=== PATIENT | male | born 1970 | race Caucasian/White ===

== ENCOUNTER 2019-04-19 03:48 | Inpatient (IN) | payer MEDICAID ==
[~2019-04-19] VITALS: Ht 172.7 cm; Wt 90.7 kg
[2019-04-19 03:56] VITALS: BP 154/100
--- NOTE | 2019-04-19 03:56 | NUR ---
PT TAKEN TO BED 7
[2019-04-19] MEDS ORDERED: MORPHINE SULFATE 4 MG/ML SYR IVP ONE ×3 (04:00→08:40)
[2019-04-19] MEDS ORDERED: NACL 0.9% 1,000 ML IV ONE (04:00)
[2019-04-19] MEDS ORDERED: ONDANSETRON 4 MG/2 ML VIAL IVP ONE (04:00)
--- NOTE | 2019-04-19 04:04 | NUR ---
Dr. Ayala examining patient.
--- NOTE | 2019-04-19 04:05 | NUR ---
48 YO M PRESENTS TO ED C/O 08/13 SHARP MIDDLE ABD PAIN THAT COMES AND GOES X 2 DAYS. PT ALSO C/O NVD. REPORTS EMESIS X 3 TODAY AND 1 EPISODE DIARRHEA YESTERDAY. PT DENIES PMH. ADMITS TO DRINKING "A LOT, ABOUT A 12 PACK A DAY". DENIES RECREATIONAL DRUG USE. -- PT APPEARS TO BE IN SEVERE PAIN. GUARDING ABD. GROANING, GRIMACING, USING INAPPROPRIATE LANGUAGE. -- SKIN PINK, WARM, DRY. -- ABD SOFT, FLAT, TENDER TO TOUCH. PMH-- DENIES RX-- DENIES
--- NOTE | 2019-04-19 04:15 | NUR ---
LABS DRAWN AT BEDSIDE BY RN.
[2019-04-19 04:33] LABS: BASOPHILS % (AUTO) 0.2 % (0.0-2.0); EOSINOPHILS # (AUTO) 0.2 K/uL (0-0.4); LYMPHOCYTES # (AUTO) 1.4 K/uL (2.0-11.5); MONOCYTES # (AUTO) 0.5 K/uL (0.8-1.0)
[2019-04-19 04:36] LABS: EOSINOPHILS % (AUTO) 2.7 % (0.0-4.0); HEMATOCRIT 49.6 % (36-52); HEMOGLOBIN 17.3 g/dL (12.0-18.0); LYMPHOCYTES % (AUTO) 19.9 % (20.5-51.1); MEAN CORPUSCULAR HEMOGLOBIN 32 pg (27-31); MEAN CORPUSCULAR HGB CONC 35 g/dL (33-37); MEAN CORPUSCULAR VOLUME 90.3 fL (80-94); MONOCYTES % (AUTO) 7.8 % (1.7-9.3); NEUTROPHILS # (AUTO) 4.9 K/uL (1.8-7.7); NEUTROPHILS % (AUTO) 69.4 % (42.2-75.2); PLATELET COUNT (AUTO) 246 K/uL (140-450); RED BLOOD CELL COUNT(AUTO) 5.49 MIL/uL (4.20-6.10); RED CELL DISTRIBUTION WIDTH 14.1 % (11.6-13.7)
[2019-04-19 04:44] LABS: ANION GAP 14.9 (8-16); CARBON DIOXIDE 25.7 mmol/L (21-32); CREATININE 1.1 mg/dL (0.7-1.3); POTASSIUM 3.6 mmol/L (3.5-5.1)
[2019-04-19] MEDS ORDERED: fentaNYL 0.05 MG/ML VIAL IVP ONE (05:25)
--- NOTE | 2019-04-19 05:45 | NUR ---
2 LMP O2 VIA NC PROVIDED FOR COMFORT TO KEEP SP02 >92%.
--- NOTE | 2019-04-19 05:57 | NUR ---
Ultrasound at bedside.
--- NOTE | 2019-04-19 07:04 | NUR ---
REPORT GIVEN TO JONATHON GERMAN.
--- NOTE | 2019-04-19 07:05 | NUR ---
Received report from Nikolas HOLT.
--- NOTE | 2019-04-19 07:19 | NUR ---
MECHELLE VALDIVIA AT BEDSIDE AT THIS TIME.
[2019-04-19] MEDS ORDERED: NACL 0.9% 2,000 ML IV SCH (07:39)
--- NOTE | 2019-04-19 07:52 | NUR ---
PT PENDING ADMIT, WAITING FOR APROVAL FROM INSURANCE.
[2019-04-19 08:23] LABS: GAMMA GLUTAMYL TRANSFERASE 726 U/L (7-51); MAGNESIUM 1.9 mg/dL (1.8-2.4)
[2019-04-19 08:24] LABS: PROTHROMBIN TIME 10.3 secs (10.8-13.4)
[2019-04-19] MEDS ORDERED: DOCUSATE SODIUM 100 MG GELCAP PO PRN (08:30)
[2019-04-19] MEDS ORDERED: ACETAMINOPHEN 325 MG TAB PO PRN (08:30)
[2019-04-19] MEDS ORDERED: ONDANSETRON 4 MG/2 ML VIAL IM/IVP PRN (08:30)
[2019-04-19] MEDS ORDERED: HYDROcodone/APAP 5/325 MG 1 TAB TAB PO PRN (08:30)
[2019-04-19] MEDS ORDERED: GLYCOPYRROLATE 0.2 MG/ML VIAL IV ONE (08:40)
[2019-04-19] MEDS ORDERED: KETOROLAC 30 MG/ML VIAL IVP ONE (08:40)
--- NOTE | 2019-04-19 08:40 | NUR ---
PT REPORTING 10/10 UPPER ABD PAIN. PT MOANING, AND GUARDING ABD. VSS. ER MD NOTIFIED.
[2019-04-19 08:56] LABS: BARBITURATE, URINE NEG. ng/ml (NEG <=200); BENZODIAZEPINE, URINE NEG. ng/mL (NEG <=200); CANNABINOID, URINE POS. ng/mL (NEG <=50); COCAINE, URINE NEG. ng/mL (NEG <=300); OPIATE, URINE POS. ng/mL (NEG <=2000); PHENCYCLIDINE SCREEN,URINE NEG. ng/mL (NEG <=25)
[2019-04-19 08:57] LABS: APPEARANCE,URINE CLEAR (CLEAR); BILIRUBIN,URINE NEGATIVE (NEGATIVE); BLOOD, URINE NEGATIVE (NEGATIVE); COLOR,URINE YELLOW (YELLOW); LEUKOCYTE ESTERASE ,URINE NEGATIVE (NEGATIVE); NITRITE, URINE NEGATIVE (NEGATIVE); PH,URINE >=9.0 (5.0-9.0); UGLUCOSE NEGATIVE (NEGATIVE)
[2019-04-19] MEDS ORDERED: LORazepam 1 MG TAB PO PRN (09:05)
--- NOTE | 2019-04-19 09:15 | NUR ---
Patient will be admitted to care of [facility]. Admited to MED/SURG VIA WHEELCHAIR W/ VSS. Belongings list completed. Report to NANDA HOLT.
--- NOTE | 2019-04-19 09:15 | NUR ---
PATIENT ARRIVED UNIT VIA WHEELCHAIR ACCOMPANIED BY X RAY OPERATOR. PATIENT IS AAOX4. RESPIRATION EVEN AND UNLABORED ON RA. PATIENT STATED THAT HIS PAIN IS WITHIN TOLERATED LIMIT AFTER HE RECEIVED PAIN MEDS FROM ER. IV ON LAC 18G, CLEAN AND INTACT, NOT INFUSING AT THIS TIME. SKIN CLEAN AND DRY. PATIENT IS ABLE TO AMBULATE WITH STANDBY ASSIST. CONTINENT. ASSISTED PATIENT TO LAY DOWN ON BED COMFORTABLY. INTRODUCED SELF AND ORIENTED PATIENT TO ROOM, INSTRUCTED PATIENT ON HOW TO USE THE CALL LIGHT, BED REMOTE, TV, BATHROOM AND LIGHTS. PATIENT VERBALIZED OK. DISCUSSED PLAN OF CARE WITH PATIENT AND PATIENT VERBALIZED UNDERSTANDING. BED IN LOW POSITION AND CALL LIGHT WITHIN REACH. INSTRUCTED PATIENT TO USE THE CALL LIGHT FOR ANY ASSISTANCE, AND PATIENT WAS AWARE.
--- NOTE | 2019-04-19 09:22 | NUR ---
PATIENT REQUESTED FOR SOME WATER AND STATED THAT HE IS THIRSTY. INFORMED PATIENT THAT DUE TO HIS CONDITION, DR WANTS HIM TO BE NPO. PATIENT VERBALIZED UNDERSTANDING. PROVIDED ICE CHIPS TO MOISTURE MOUTH.
[2019-04-19 09:30] VITALS: BP 129/81
--- NOTE | 2019-04-19 09:45 | NUR ---
CALLED PATIENT'S DHIRAJ PER PATIENT'S REQUEST, INFORMED DHIRAJ THAT PATIENT IS PLACED IN ROOM 105 BED ASugar HEARN WAS AWARE.
[2019-04-19] MEDS: DEXT 5% / NACL 0.45% 1,000 ML IV SCH ×2 (10:13→22:04)
--- NOTE | 2019-04-19 10:13 | NUR ---
STARTED IVF PER MD ORDER. COLLECTED MRSA NARES. APPLIED SEQUENTIAL COMPRESSION SOCKS ON PATIENT'S LEGS. EDUCATION PROVIDED AND PATIENT VERBALIZED UNDERSTANDING.
[2019-04-19 11:25] LABS: MAGNESIUM 1.8 mg/dL (1.8-2.4); PHOSPHORUS 3.2 mg/dL (2.5-4.9); THYROID STIMULATING HORMONE 0.34 uIU/mL (0.34-3.74)
--- NOTE | 2019-04-19 11:50 | NUR ---
PATIENT IS TALKING TO DHIRAJ AND VISITOR AT BEDSIDE. NO SIGNS OF DISTRESS NOTED. SAFETY MEASURES IN PLACE.
[2019-04-19] MEDS ORDERED: LACTULOSE 20 GM/30 ML UDC PO SCH ×2 (13:00→21:00)
[2019-04-19] MEDS: LORazepam 1 MG TAB PO SCH ×2 (13:12→20:14)
--- NOTE | 2019-04-19 13:12 | NUR ---
ADMINISTERED MEDS PER MD ORDER, PATIENT TOLERATED WELL AND STATED THAT " MY PAIN IS STILL OK. NOT BAS THIS MORNING." MEDICATION EDUCATION PROVIDED AND PATIENT VERBALIZED UNDERSTANDING. PATIENT IS TALKING ON THE PHONE. SAFETY MEASURES IN PLACE. BED IN LOW POSITION AND CALL LIGHT WITHIN REACH. INSTRUCTED PATIENT TO USE THE CALL LIGHT FOR ANY ASSISTANCE AND PATIENT WAS AWARE.
--- NOTE | 2019-04-19 15:20 | NUR ---
PATIENT IS LYING FLAT ON BED AND DOING HIDA SCAN. PATIENT DENIES PAIN AND ANY DISCOMFORT AT THIS TIME. NO SIGNS OF DISTRESS NOTED. SEQUENTIAL COMPRESSION SOCKS IN PLACE. SAFETY MEASURES IN PLACE. BED IN LOW POSITION AND CALL LIGHT WITHIN REACH. INSTRUCTED PATIENT TO USE THE CALL LIGHT FOR ANY ASSISTANCE AND PATIENT WAS AWARE.
[2019-04-19 16:00] VITALS: BP 125/73
[2019-04-19] MEDS: MORPHINE SULFATE 2 MG/ML SYR IVP PRN (17:51)
--- NOTE | 2019-04-19 17:51 | NUR ---
PATIENT COMPLAINED 8/10 PAIN ON HIS ABDOMINAL AREA, MEDICATED WITH PRN PAIN MED, PATIENT TOLERATED WELL. PATIENT IS RESTING ON BED. SEQUENTIAL COMPRESSION SOCKS IN PLACE. SAFETY MEASURES IN PLACE. BED IN LOW POSITION AND CALL LIGHT WITHIN REACH. INSTRUCTED PATIENT TO USE THE CALL LIGHT FOR ANY ASSISTANCE AND PATIENT WAS AWARE.
--- NOTE | 2019-04-19 19:07 | NUR ---
ENDORSED PATIENT AT BEDSIDE TO LANE ATTENDANT NURSE FOR CONTINUITY OF CARE. PATIENT IS RESTING ON BED. DENIES PAIN AT THIS TIME. NO SIGNS OF DISTRESS NOTED. SAFETY MEASURES IN PLACE. PATIENT IS IN STABLE CONDITION.
--- NOTE | 2019-04-19 19:10 | NUR ---
RECEIVED PT ON BED SLEEPING, AROUSABLE TO NAME, DENIES ANY PAIN, IVF INFUSING WELL, MAINTAINED ON NPO EXCEPT MEDS, PLAN OF CARE DISCUSSED, SAFETY MEASURES IN PLACE, CALL LIGHT WITHIN REACH.
--- NOTE | 2019-04-19 21:25 | NUR ---
CALLED RADIOLOGY TO FOLLOW UP HIDA SCAN RESULT, SPOKE TO OLAMIDE, STATED SHE WILL FOLLOW UP ON-LINE RADIOLOGY.
--- NOTE | 2019-04-19 21:53 | NUR ---
HIDA SCAN RESULT RECEIVED FROM ON-LINE RADIOLOGY VIA FAX, DR SWANN MADE AWARE OF RESULT.
--- NOTE | 2019-04-19 23:50 | NUR ---
PT SLEEPING, EASILY AROUSABLE TO TOUCH, VITAL SIGNS STABLE, DENIES ANY PAIN, MAINTAINED ON NPO EXCEPT MEDS, IVF INFUSING WELL, CONTINUE TO MONITOR CLOSELY.
[2019-04-20] VITALS: BP 116/72
[2019-04-20] MEDS: LORazepam 1 MG TAB PO SCH ×3 (04:19→20:33)
[2019-04-20] MEDS: MORPHINE SULFATE 2 MG/ML SYR IVP PRN (04:23)
--- NOTE | 2019-04-20 04:30 | NUR ---
PT AMBULATED TO BR WITH STEADY GAIT, VOIDED FREELY, PT MEDICATED FOR ABDOMINAL PAIN WITH MORPHINE IVP, DUE ATIVAN PO ADMINISTERED, MAINTAINED ON NPO EXCEPT MEDS, IVF INFUSING WELL, MONITORED CLOSELY.
--- NOTE | 2019-04-20 06:00 | NUR ---
PT SLEEPING, VISIBLE CHEST RISE AND FALL, IVF INFUSING WELL, MONITORED CLOSELY.
[2019-04-20 06:52] LABS: BASOPHILS % (AUTO) 0.3 % (0.0-2.0); EOSINOPHILS # (AUTO) 0.3 K/uL (0-0.4); EOSINOPHILS % (AUTO) 4.5 % (0.0-4.0); HEMATOCRIT 44.8 % (36-52); LYMPHOCYTES # (AUTO) 1.5 K/uL (2.0-11.5); LYMPHOCYTES % (AUTO) 26.3 % (20.5-51.1); MEAN CORPUSCULAR HEMOGLOBIN 31 pg (27-31); MEAN CORPUSCULAR HGB CONC 33 g/dL (33-37); MEAN CORPUSCULAR VOLUME 92.8 fL (80-94); MONOCYTES # (AUTO) 0.4 K/uL (0.8-1.0); MONOCYTES % (AUTO) 6.8 % (1.7-9.3); NEUTROPHILS # (AUTO) 3.6 K/uL (1.8-7.7); NEUTROPHILS % (AUTO) 62.1 % (42.2-75.2); PLATELET COUNT (AUTO) 187 K/uL (140-450); RED BLOOD CELL COUNT(AUTO) 4.82 MIL/uL (4.20-6.10); RED CELL DISTRIBUTION WIDTH 13.9 % (11.6-13.7); WHITE BLOOD COUNT (AUTO) 5.8 K/uL (4.8-10.8)
[2019-04-20 07:13] LABS: MAGNESIUM 1.9 mg/dL (1.8-2.4); PHOSPHORUS 2.8 mg/dL (2.5-4.9)
--- NOTE | 2019-04-20 07:20 | NUR ---
PT SLEEPING, NO SIGNS OF DISTRESS, REPORT GIVEN TO JONATHON TSAI FOR CONTINUITY OF CARE.
[2019-04-20 07:21] LABS: ALBUMIN 3.2 g/dL (3.4-5.0); ANION GAP 11.1 (8-16); CARBON DIOXIDE 27.1 mmol/L (21-32); POTASSIUM 4.2 mmol/L (3.5-5.1); TOTAL BILIRUBIN 1.2 mg/dL (0.0-1.0)
--- NOTE | 2019-04-20 07:21 | NUR ---
RECEIVED REPORT FROM STRETCHER HELPER NURSE WILLIAM FOR CONTINUITY OF CARE. PT IN STABLE CONDITION. RESPIRATIONS EVEN AND UNLABORED. IV INTACT AND PATENT. SAFETY MEASURES IN PLACE. BED IN LOW POSITION. CALL LIGHT AT BEDSIDE, USE INSTRUCTIONS GIVEN. WILL CONTINUE TO MONITOR.
[2019-04-20 08:00] VITALS: BP 132/87
--- NOTE | 2019-04-20 08:45 | NUR ---
PATIENT HAS BEEN SCREENED AND CATEGORIZED LOW NUTRITION RISK. PATIENT WILL BE SEEN WITHIN 7 DAYS OF ADMISSION. 04/25/[address]
[2019-04-20] MEDS ORDERED: PIPER/TAZO 3.375GM/D5W PREMIX 50 ML IV SCH (09:35)
[2019-04-20] MEDS ORDERED: LACTOBACILLUS RHAMNOSUS GG 1 EACH CAP PO SCH (09:36)
[2019-04-20] MEDS: MULTIVITAMIN 1 TAB PO SCH (09:41)
[2019-04-20] MEDS: THIAMINE 100 MG TAB PO SCH (09:41)
[2019-04-20] MEDS: FOLIC ACID 1 MG TAB PO SCH (09:41)
--- NOTE | 2019-04-20 09:45 | NUR ---
GAVE ORDERED DUE MEDICATIONS. PT TOLERATED WELL. WILL CONTINUE TO MONITOR. CALL LIGHT AT BEDSIDE. BED IN LOW POSITION. WILL CONTINUE TO MONITOR.
--- NOTE | 2019-04-20 11:26 | NUR ---
PT LYING IN BED SLEEP AT THIS TIME. RESPIRATIONS EVEN AND UNLABORED. BED IN LOW POSITION. CALL LIGHT AT BEDSIDE. WILL CONTINUE TO MONITOR.
[2019-04-20] MEDS: DEXT 5% / NACL 0.45% 1,000 ML IV SCH ×2 (11:44→22:25)
--- NOTE | 2019-04-20 13:26 | NUR ---
PT SLEEPING AT THIS TIME. RESPIRATIONS EVEN AND UNLABORED. PT EASILY AROUSED BY VOICE. PT IN STABLE CONDITION. CALL LIGHT AT BEDSIDE. BED IN LOW POSITION.
--- NOTE | 2019-04-20 15:00 | NUR ---
PT LAYING IN BED AWAKE IN STABLE CONDITION. RESPIRATIONS EVEN AND UNLABORED. BED IN LOW POSITION. CALL LIGHT AT BEDSIDE. WILL CONTINUE TO MONITOR.
[2019-04-20 16:00] VITALS: BP 125/77
--- NOTE | 2019-04-20 17:35 | NUR ---
PICKED UP FOOD TRAY (FULL LIQUID DIET) FOR PT. PT WILL BE NPO AFTER MIDNIGHT DUE TO SURGERY 04/21/2019.
--- NOTE | 2019-04-20 18:30 | NUR ---
GAVE ORDERED DUE MEDICATIONS. PT TOLERATED WELL. WILL CONTINUE TO MONITOR. BED IN LOW POSITION. CALL LIGHT AT BEDSIDE.
[2019-04-20] MEDS: PIPER/TAZO 3.375GM/D5W PREMIX 50 ML IV SCH (18:43)
--- NOTE | 2019-04-20 19:15 | NUR ---
GAVE REPORT TO HOUSEHOLD MANAGER NURSE KEHINDE FOR CONTINUITY OF CARE. PT IN STABLE CONDITION.
--- NOTE | 2019-04-20 19:16 | NUR ---
Received endorsement from AM shift RN; patient A/Ox4, able to make needs known, ambulatory. Patient resting; introduced self, updated board. No SOB or distress noted, on room air. IV site on left antecubital, 18 gauge, intact, running IVF at 80mL/hr. Skin intact. Bed in the lowest position, call light within reach. Initial assessment done. Will continue to monitor.
--- NOTE | 2019-04-20 20:40 | NUR ---
Due meds given, tolerated well.
--- NOTE | 2019-04-20 22:30 | NUR ---
Rounds done; no SOB or distress noted. Made patient aware he cannot eat or drink anything after midnight in preparation for surgery tomorrow 04/21/2019 at 1300.
[2019-04-21] VITALS: BP 119/80
--- NOTE | 2019-04-21 00:05 | NUR ---
Vitals taken, no SOB or distress noted.
[2019-04-21] MEDS: PIPER/TAZO 3.375GM/D5W PREMIX 50 ML IV SCH ×5 (00:58→23:23)
--- NOTE | 2019-04-21 02:30 | NUR ---
Frequent checks made; no distress noted.
[2019-04-21] MEDS: LORazepam 1 MG TAB PO SCH ×3 (04:50→20:15)
--- NOTE | 2019-04-21 05:00 | NUR ---
Due meds given, tolerated well.
[2019-04-21 06:12] LABS: HEPATITIS A ANTIBODY IGM Negative (Negative); HEPATITIS B CORE AB TOTAL Negative (Negative); HEPATITIS B SURFACE ANTIBODY Non Reactive (.); HEPATITIS B SURFACE ANTIGEN Negative (Negative)
[2019-04-21 06:39] LABS: BASOPHILS % (AUTO) 0.5 % (0.0-2.0); EOSINOPHILS # (AUTO) 0.4 K/uL (0-0.4); EOSINOPHILS % (AUTO) 5.3 % (0.0-4.0); HEMATOCRIT 45.4 % (36-52); HEMOGLOBIN 15.4 g/dL (12.0-18.0); LYMPHOCYTES # (AUTO) 2.2 K/uL (2.0-11.5); MEAN CORPUSCULAR HEMOGLOBIN 31 pg (27-31); MEAN CORPUSCULAR HGB CONC 34 g/dL (33-37); MEAN CORPUSCULAR VOLUME 92.3 fL (80-94); MONOCYTES # (AUTO) 0.7 K/uL (0.8-1.0); MONOCYTES % (AUTO) 8.6 % (1.7-9.3); NEUTROPHILS # (AUTO) 4.5 K/uL (1.8-7.7); NEUTROPHILS % (AUTO) 57.6 % (42.2-75.2); PLATELET COUNT (AUTO) 226 K/uL (140-450); RED BLOOD CELL COUNT(AUTO) 4.92 MIL/uL (4.20-6.10); RED CELL DISTRIBUTION WIDTH 13.7 % (11.6-13.7); WHITE BLOOD COUNT (AUTO) 7.8 K/uL (4.8-10.8)
--- NOTE | 2019-04-21 07:18 | NUR ---
Endorsed patient to AM shift RN for continuity of care; patient in stable condition.
--- NOTE | 2019-04-21 07:20 | NUR ---
RECEIVED BEDSIDE REPORT FROM WAITER/WAITRESS FORMAL NURSE FOR CONTINUITY OF CARE. PATIENT IS SLEEPING ON BED AT THIS TIME. EVEN AND UNLABORED CHEST RISES NOTED. AROUSABLE TO VOICE. DENIES PAIN AND SOB. NO SIGNS OF DISTRESS NOTED. IV ON LAC 18G, CLEAN AND DRY, INFUSING PER MD ORDER. SKIN INTACT AND CLEAN. PATIENT IS ABLE TO AMBULATE AND CONTINENT. DISCUSSED PLAN OF CARE WITH PATIENT AND PATIENT VERBALIZED OK. SAFETY MEASURES IN PLACE. BED IN LOW POSITION AND CALL LIGHT WITHIN REACH.
[2019-04-21 07:22] LABS: ALBUMIN 3.1 g/dL (3.4-5.0); ANION GAP 11.5 (8-16); CARBON DIOXIDE 27.7 mmol/L (21-32); CREATININE 1.1 mg/dL (0.7-1.3); MAGNESIUM 1.9 mg/dL (1.8-2.4); PHOSPHORUS 3.8 mg/dL (2.5-4.9); POTASSIUM 4.2 mmol/L (3.5-5.1); TOTAL BILIRUBIN 0.8 mg/dL (0.0-1.0)
[2019-04-21 08:00] VITALS: BP 106/68
[2019-04-21] MEDS: THIAMINE 100 MG TAB PO SCH (08:55)
[2019-04-21] MEDS: MULTIVITAMIN 1 TAB PO SCH (08:55)
[2019-04-21] MEDS: LACTOBACILLUS RHAMNOSUS GG 1 EACH CAP PO SCH (08:55)
[2019-04-21] MEDS: FOLIC ACID 1 MG TAB PO SCH (08:56)
--- NOTE | 2019-04-21 09:45 | NUR ---
PATIENT IS TALKING TO DHIRAJ AND VISITOR AT BEDSIDE. NO SIGNS OF DISTRESS NOTED. SAFETY MEASURES IN PLACE.
--- NOTE | 2019-04-21 11:35 | NUR ---
PATIENT IS RESTING ON BED. DENIES PAIN AND SOB AT THIS TIME. NO SIGNS OF DISTRESS. SAFETY MEASURES IN PLACE. BED IN LOW POSITION AND CALL LIGHT WITHIN REACH. INSTRUCTED PATIENT TO USE THE CALL LIGHT FOR ANY ASSISTANCE AND PATIENT WAS AWARE.
[2019-04-21] MEDS: DEXT 5% / NACL 0.45% 1,000 ML IV SCH (13:21)
--- NOTE | 2019-04-21 13:23 | NUR ---
ADMINISTERED MED PER MD ORDER, PATIENT TOLERATED WELL. PATIENT IS RESTING ON BED. DENIES PAIN AND SOB AT THIS TIME. NO SIGNS OF DISTRESS. SAFETY MEASURES IN PLACE. BED IN LOW POSITION AND CALL LIGHT WITHIN REACH. INSTRUCTED PATIENT TO USE THE CALL LIGHT FOR ANY ASSISTANCE AND PATIENT WAS AWARE.
--- NOTE | 2019-04-21 15:15 | NUR ---
PATIENT IS OFF UNIT TO THE OR ACCOMPANIED BY APPAREL FASHION DESIGNERJONATHON NEVAREZ. PATIENT IS IN STABLE CONDITION.
[2019-04-21] MEDS ORDERED: PROPOFOL 200 MG/20 ML VIAL IV ONE (16:17)
[2019-04-21] MEDS ORDERED: LABETALOL 100 MG/20 ML VIAL ONE (16:17)
[2019-04-21] MEDS ORDERED: SUCCINYLCHOLINE CHLORIDE 200 MG/10 ML VIAL IVP ONE (16:17)
[2019-04-21] MEDS ORDERED: ROCURONIUM 50 MG/5 ML VIAL IV ONE (16:17)
[2019-04-21] MEDS ORDERED: DESFLURANE 240 ML BTL INH ONE (16:17)
[2019-04-21] MEDS ORDERED: DEXAMETHASONE 4 MG/ML VIAL ONE (16:17)
[2019-04-21] MEDS ORDERED: LIDOCAINE 2% 100 MG/5 ML SYR IVP ONE (16:17)
[2019-04-21] MEDS ORDERED: MIDAZOLAM 2 MG/2 ML VIAL ONE (16:30)
[2019-04-21] MEDS ORDERED: fentaNYL 0.05 MG/ML VIAL ONE (16:30)
[2019-04-21] MEDS ORDERED: BUPIVACAINE-MPF/EPI 0.25% 30 ML VIAL INJ ONE (16:36)
[2019-04-21] MEDS ORDERED: ONDANSETRON 4 MG/2 ML VIAL IVP PRN (17:00)
[2019-04-21] MEDS: HYDROmorphone 1 MG/ML AMP IVP PRN ×4 (18:30→19:00)
--- NOTE | 2019-04-21 18:45 | NUR ---
RECEIVED A CALL FROM PATIENT'S DHIRAJ THAT SHE WANTS TO KNOW HOW IS PATIENT DOING, INFORMED DHIRAJ THAT PATIENT IS IN RECOVERY AND NOT YET COME BACK TO THE UNIT. DHIRAJ SAID SHE WILL NOT BE COMING IN TO VISIT [facility]ENCHO. SHE REQUESTS TO BE CALL ONCE PATIENT IS BACK ON THE UNIT OR HAVE PATIENT TO CALL HER ONCE HE IS AWAKE AND ALERT. WILL NOTIFY THE ON COMING SHIFT NURSE ON REGARD OF DHIRAJ'S REQUEST.
[2019-04-21] MEDS ORDERED: HYDROmorphone PFS 2 MG/ML SYR ONE (18:48)
--- NOTE | 2019-04-21 19:09 | NUR ---
REPORT GIVEN TO FINANCIAL ACCOUNTING MANAGER NURSE FOR CONTINUITY OF CARE. PATIENT IS NOT YET BACK ON UNIT. INFORMED FINANCIAL ACCOUNTING MANAGER NURSE TO NOTIFY PATIENT'S ONCE PATIENT IS BACK ON UNIT OR HAVE PATIENT TO CALL IF HE IS ALERT AND AWAKE.
--- NOTE | 2019-04-21 19:10 | NUR ---
Received endorsement from AM shift RN; patient not in unit. Patient is currently in OR for surgery.
--- NOTE | 2019-04-21 19:20 | NUR ---
Patient arrived in unit via bed, accompanied by STENCIL CUTTER; patient A/Ox4, able to make needs known, lethargic. Patient resting; introduced self, updated board. No SOB or distress noted, on room air. IV site on left antecubital, 18 gauge, intact, running IVF at 80mL/hr. Skin intact, but noted with 4 incision sites on abdomen area, no bandages. Bed in the lowest position, call light within reach. Initial assessment done. Will continue to monitor.
[2019-04-21] MEDS ORDERED: ALBUTEROL SULFATE/IPRATROPIU 3 ML SOL IH PRN (19:25)
--- NOTE | 2019-04-21 19:30 | NUR ---
Vitals taken; patient noted with decreased O2Sat 87-89%. Dr. Bautista made aware. Orders made and carried out.
--- NOTE | 2019-04-21 21:10 | NUR ---
Due meds given, tolerated well.
--- NOTE | 2019-04-21 23:00 | NUR ---
Checks made; patient stated 6/10 abdominal pain. Will medicate as ordered and per pain scale.
[2019-04-21] MEDS: HYDROcodone/APAP 5/325 MG 1 TAB TAB PO PRN (23:27)
[2019-04-22] VITALS: BP 115/73
--- NOTE | 2019-04-22 00:20 | NUR ---
Vitals taken, no distress noted.
--- NOTE | 2019-04-22 00:50 | NUR ---
Wound assessment completed. Addendum: 04/22/19 at 0300 by Dominic Patterson RN Measurements done.
[2019-04-22] MEDS: DEXT 5% / NACL 0.45% 1,000 ML IV SCH (00:58)
--- NOTE | 2019-04-22 03:00 | NUR ---
Rounds done; patient asleep, visible chest rise and fall noted.
[2019-04-22] MEDS: PIPER/TAZO 3.375GM/D5W PREMIX 50 ML IV SCH ×2 (05:01→11:06)
[2019-04-22] MEDS: LORazepam 1 MG TAB PO SCH ×2 (05:01→13:03)
[2019-04-22] MEDS: MORPHINE SULFATE 2 MG/ML SYR IVP PRN ×2 (05:02→08:10)
[2019-04-22] MEDS: NACL 0.9% 500 ML IV SCH ×2 (05:49→13:50)
--- NOTE | 2019-04-22 05:50 | NUR ---
Checks made; patient asleep, visible chest rise and fall noted.
[2019-04-22] MEDS ORDERED: HYDR-5122 PO (06:16)
[2019-04-22 06:58] LABS: BASOPHILS % (AUTO) 0.2 % (0.0-2.0); EOSINOPHILS # (AUTO) 0.1 K/uL (0-0.4); EOSINOPHILS % (AUTO) 0.6 % (0.0-4.0); HEMOGLOBIN 15.5 g/dL (12.0-18.0); LYMPHOCYTES # (AUTO) 1.3 K/uL (2.0-11.5); LYMPHOCYTES % (AUTO) 12.8 % (20.5-51.1); MEAN CORPUSCULAR HEMOGLOBIN 31 pg (27-31); MEAN CORPUSCULAR HGB CONC 34 g/dL (33-37); MEAN CORPUSCULAR VOLUME 93.3 fL (80-94); MONOCYTES # (AUTO) 0.6 K/uL (0.8-1.0); NEUTROPHILS % (AUTO) 80.4 % (42.2-75.2); PLATELET COUNT (AUTO) 244 K/uL (140-450); RED BLOOD CELL COUNT(AUTO) 4.93 MIL/uL (4.20-6.10); RED CELL DISTRIBUTION WIDTH 13.5 % (11.6-13.7); WHITE BLOOD COUNT (AUTO) 9.9 K/uL (4.8-10.8)
[2019-04-22 07:18] LABS: ALBUMIN 3.5 g/dL (3.4-5.0); ANION GAP 11.8 (8-16); CARBON DIOXIDE 27.9 mmol/L (21-32); CREATININE 1.2 mg/dL (0.7-1.3); MAGNESIUM 2.1 mg/dL (1.8-2.4); PHOSPHORUS 4.5 mg/dL (2.5-4.9); POTASSIUM 4.7 mmol/L (3.5-5.1); TOTAL BILIRUBIN 0.9 mg/dL (0.0-1.0)
--- NOTE | 2019-04-22 07:18 | NUR ---
Endorsed patient to AM shift RN for continuity of care; patient in stable condition.
--- NOTE | 2019-04-22 07:19 | NUR ---
RECEIVED BED SIDE REPORT FROM PERPETUAL INVENTORY CLERK RN. PT SLEEPING COMFORTABLY IN NO RESPIRATORY DISTRESS ON RA. NS RUNNING AT 60CC/HR. PT IS S/P LAP CHOLY WHICH WAS DONE YESTERDAY. WILL CONTINUE TO MONITOR
[2019-04-22 08:00] VITALS: BP 144/94
[2019-04-22] MEDS: FOLIC ACID 1 MG TAB PO SCH (08:08)
[2019-04-22] MEDS: THIAMINE 100 MG TAB PO SCH (08:08)
[2019-04-22] MEDS: LACTOBACILLUS RHAMNOSUS GG 1 EACH CAP PO SCH (08:09)
[2019-04-22] MEDS: MULTIVITAMIN 1 TAB PO SCH (08:09)
[2019-04-22 08:18] LABS: HEPATITIS A ANTIBODY IGM Negative (Negative)
[2019-04-22] MEDS: HYDROcodone/APAP 5/325 MG 1 TAB TAB PO PRN (11:39)
--- NOTE | 2019-04-22 11:55 | NUR ---
NOTIFIED ABOUT PT'S INCISIONAL PAIN NOT BEING REDUCED WHEN GIVING MORPHINE. EVAULATED PT AND TOLD ME TO GIVE NORCO AND TO CONTINUE TO MONITOR
--- NOTE | 2019-04-22 13:36 | NUR ---
OSMIN NOONAN EARLIER. PT STILL IN A SIGNIFICANT AMOUNT OF PAIN AFTER GIVING NORCO. MADE AWARE ABOUT MORPHINE NOT WORKING, ORDERED ME TO GIVE NORCO. PT ATE 10% OF FOOD AND SAID FELT NAUSEOUS BUT NO VOMITING. GAVE ATIVAN PER MD ORDER, NO ALCOHOL WITHDRAWALS NOTED. PT ABLE TO WALK TO BATHROOM WITH STEADY GAIT. GAVE FOLDED BLANKET FOR SPLINTING. WILL CONTINUE TO MONITOR.
--- NOTE | 2019-04-22 14:49 | NUR ---
PT WHEELED OUT OF UNIT. WITH PT. PERSONAL BELONGINGS TAKEN WITH PT ALONG WITH DC PACKET. IV TAKEN OFF, NO BLEEDING NOTED.
== END 2019-04-22 14:49 | disposition home or self-care (01) | DRG 263 ==
LOC: MED 03:48 → MTU 08:34
PROVIDERS: ADMIT General Practice; ATTEND General Practice
PROC: 0FT44ZZ Resection of Gallbladder, Percutaneous Endoscopic Approach (ICD-10-PCS; principal; 2019-04-21 16:10)
DX: K80.00 Calculus of gallbladder with acute cholecystitis without obstruction (principal); E44.0 Moderate protein-calorie malnutrition; E72.20 Disorder of urea cycle metabolism, unspecified; K70.9 Alcoholic liver disease, unspecified; F10.239 Alcohol dependence with withdrawal, unspecified; Y90.0 Blood alcohol level of less than 20 mg/100 ml; Z80.41 Family history of malignant neoplasm of ovary; I10 Essential (primary) hypertension; F12.10 Cannabis abuse, uncomplicated; Z71.51 Drug abuse counseling and surveillance of drug abuser; D13.5 Benign neoplasm of extrahepatic bile ducts; Z68.30 Body mass index [BMI] 30.0-30.9, adult
CPT/HCPCS: 36415; 71045; 76705; 78445; 80053; 80305; 81003; 82140; 82150; 82977; 83036; 83605; 83690; 83735; 83880; 84100; 84436; 84443; 84484; 85025; 85610; 86704; 86706; 86708; 86709; 86803; 86886; 86900; 86901; 87081; 87340; 93005; 96361; 96374; 96375; 96376; 99285; G0482; J0330; J1100; J1170; J1885; J2001; J2250; J2270; J2405; J2543; J2704; J3010; J3490; J7030; Q0092

== ENCOUNTER 2019-05-07 13:17 | Emergency (ER) | payer MEDICAID ==
[~2019-05-07] VITALS: Ht 172.7 cm; Wt 85.3 kg
[~2019-05-07 13:17] MED LIST: HYDR-5122 PO
[2019-05-07 13:21] VITALS: BP 126/85
--- NOTE | 2019-05-07 13:28 | NUR ---
PT AMBULATED TO ER BED 04
--- NOTE | 2019-05-07 13:40 | NUR ---
C/O R 3RD FINGER INFLAMMATION X3 WEEKS. PT REPORTS HISTORY OF GOUT. PT DENIES INJURY TO FINGER. HX: GOUT RX: NAME UNKNOWN
[2019-05-07] MEDS ORDERED: KETOROLAC 60 MG/2 ML VIAL IM ONE (14:10)
[2019-05-07] MEDS ORDERED: DEXAMETHASONE 10 MG/ML VIAL IM ONE (14:10)
[2019-05-07 15:52] VITALS: BP 132/87
== END 2019-05-07 15:50 | disposition home or self-care (01) ==
LOC: MED 13:17
DX: M10.041 Idiopathic gout, right hand (principal); Z79.899 Other long term (current) drug therapy
CPT/HCPCS: 73140; 96372; 99283; J1100; J1885

== ENCOUNTER 2019-07-08 20:11 | Emergency (ER) | payer MEDICAID ==
[~2019-07-08] VITALS: Ht 172.7 cm; Wt 79.4 kg
[2019-07-08 20:15] VITALS: BP 135/82
[2019-07-08] MEDS ORDERED: IBUPROFEN 600 MG TAB PO ONE (20:45)
[2019-07-08 21:59] VITALS: BP 132/88
== END 2019-07-08 21:59 | disposition home or self-care (01) ==
LOC: MED 20:11
DX: S52.572A Other intraarticular fracture of lower end of left radius, initial encounter for closed fracture (principal); F10.129 Alcohol abuse with intoxication, unspecified; Z90.49 Acquired absence of other specified parts of digestive tract; Z79.891 Long term (current) use of opiate analgesic; W18.39XA Other fall on same level, initial encounter; Y92.89 Other specified places as the place of occurrence of the external cause; Y93.89 Activity, other specified; Y99.8 Other external cause status
CPT/HCPCS: 29125; 73110; 99283; Q0092

== ENCOUNTER 2019-12-19 21:43 | Emergency (ER) | payer MEDICAID ==
[~2019-12-19] VITALS: Ht 172.7 cm; Wt 81.6 kg
[2019-12-19 21:50] VITALS: BP 145/94
--- NOTE | 2019-12-19 21:53 | NUR ---
TO LOBBY A/W BED AMBULATORY
--- NOTE | 2019-12-19 22:43 | NUR ---
PT AMBULATED TO BED 02.
--- NOTE | 2019-12-19 22:50 | NUR ---
48 YEAR OLD MALE COMPLAINS OF PAIN IN LEFT FOOT X 4 DAYS. PATIENT STATES THAT HE BELIEVES IT IS SIMILAR TO PREVIOUS GOUT FLAREUPS. PATIENT STATES HE TOOK HIS MEDICATION OF INDOMETHACIN BUT IT IS NOT HELPING TOO MUCH. PATIENT AOX4, BREATHING EVEN AND UNLABORED, SKIN WARM AND DRY. BED IN LOWEST POSITION, LOCKED, BED RAIL UPX1. PMH - GOUT, GALLBLADER REMOVAL ALLERGIES - NKA
--- NOTE | 2019-12-19 22:50 | NUR ---
Katlyn guerrero in [facility] - 12/19/19 at 2352 by MEDJJ LYSSA MADE AWARE OF STATUS
--- NOTE | 2019-12-19 22:50 | NUR ---
SAULD MADE AWARE OF STATUS
[2019-12-20] MEDS ORDERED: MORPHINE SULFATE 4 MG/ML SYR IM ONE (00:10)
[2019-12-20] MEDS ORDERED: MORPHINE SULFATE 4 MG/ML SYR ONE (00:12)
[2019-12-20 02:04] VITALS: BP 134/78
--- NOTE | 2019-12-20 02:04 | NUR ---
Patient discharged with v/s stable. Written and verbal after care instructions given and explained. Patient alert, oriented and verbalized understanding of instructions. Ambulatory with steady gait. All questions addressed prior to discharge. ID band removed. Patient advised to follow up with PMD. Rx of ALLOPURINOL, NAPROSYN, COLCHICINE WAS given. Patient educated on indication of medication including possible reaction and side effects. Opportunity to ask questions provided and answered. DR. MARVIN D/C PT
== END 2019-12-20 02:04 | disposition home or self-care (01) ==
LOC: MED 21:43
DX: M10.072 Idiopathic gout, left ankle and foot (principal); Z90.49 Acquired absence of other specified parts of digestive tract; Z79.899 Other long term (current) drug therapy
CPT/HCPCS: 96372; 99283; J2270

== ENCOUNTER 2020-07-30 06:01 | Emergency (ER) | payer MEDICAID ==
[~2020-07-30] VITALS: Ht 172.7 cm; Wt 81.6 kg
[2020-07-30 06:12] VITALS: BP 139/78
--- NOTE | 2020-07-30 06:16 | NUR ---
PT TAKEN TO ER BED 11
--- NOTE | 2020-07-30 06:18 | NUR ---
49 Y/O MALE PRESENTED TO ED C/O RT BIG TOE PAIN - PT STATES HE HAS HX OF GOUT AND BELIEVES ITS A GOUT FLARE UP. REDNESS AND SLIGHT SWELLING NOTED ON RT BIG TOE. PT STATES HE'S BEEN HAVING A LOT OF BEER AND RED MEAT LATELY. PT STATES HIS ORDERED AN OTC MEDICATION FOR GOUT AND HAS NOT PROVIDED ANY RELIEF. PT DENIES FEVER, BODYACHES AND CHILLS. PT RESTING IN BED, LOCKED AND IN LOWEST POSITION, HOB ELEVATED, SIDE RAIL X1 . VSS , NO ACUTE DISTRESS NOTED AT THIS TIME. LYSSA REHMAN MADE AWARE OF PT STATUS. PMH: GOUT , CHOLECYSTECTOMY NKA
--- NOTE | 2020-07-30 06:20 | NUR ---
LYSSA REHMAN AT BEDSIDE FOR MEDICAL EVALUATION.
[2020-07-30] MEDS: MORPHINE SULFATE 4 MG/ML SYR IM ONE (06:32)
[2020-07-30 06:46] VITALS: BP 139/78
--- NOTE | 2020-07-30 06:46 | NUR ---
Patient discharged with v/s stable. Written and verbal after care instructions given and explained. Patient alert, oriented and verbalized understanding of instructions. Ambulatory with steady gait. All questions addressed prior to discharge. ID band removed. Patient advised to follow up with PMD. Rx of COLCHICINE , NAPROSYN AND ALLOPURINOL given. Patient educated on indication of medication including possible reaction and side effects. Opportunity to ask questions provided and answered.
== END 2020-07-30 06:46 | disposition home or self-care (01) ==
LOC: MED 06:01
DX: M79.671 Pain in right foot (principal); M10.9 Gout, unspecified; Z79.899 Other long term (current) drug therapy
CPT/HCPCS: 96372; 99283; J2270

== ENCOUNTER 2020-09-16 13:55 | Emergency (ER) | payer MEDICAID ==
[~2020-09-16] VITALS: Ht 172.7 cm; Wt 83.9 kg
[2020-09-16 13:59] VITALS: BP 139/100
[2020-09-16] MEDS ORDERED: KETOROLAC 30 MG/ML VIAL IM ONE (14:45)
[2020-09-16 15:06] VITALS: BP 139/100
== END 2020-09-16 15:06 | disposition home or self-care (01) ==
LOC: MED 13:55
DX: M10.9 Gout, unspecified (principal); Z79.899 Other long term (current) drug therapy
CPT/HCPCS: 96372; 99283; J1885

== ENCOUNTER 2020-11-01 13:21 | Emergency (ER) | payer MEDICAID ==
[~2020-11-01] VITALS: Ht 172.7 cm; Wt 83.9 kg
[2020-11-01 13:53] VITALS: BP 140/93
--- NOTE | 2020-11-01 14:10 | NUR ---
C/O CHILLS, COUGH, HEADACHE, BODY ACHES, N/V/D, MID ABD PAIN X 10 DAYS. EDDIE TESTED 1 MONTH AGO: NEGATIVE. PMH:GALL BLADDER REMOVAL Addendum: 11/01/20 at 1544 by MED1 ABDOMINAL DISTENTION.
--- NOTE | 2020-11-01 14:10 | NUR ---
Katlyn [email or web address] in EDM - 11/01/20 at 1542 by MED1 C/O CHILLS, COUGH, HEADACHE, BODY ACHES, N/V/D, MID ABD PAIN X A0 DAYS. COVID TESTED 1 MONTH AGO: NEGATIVE. PMH:GALL BLADDER REMOVAL
--- NOTE | 2020-11-01 16:10 | NUR ---
COVID SWAB COLLECTED. Patient being evaluated by DR FARIAS at TENT 1.
[2020-11-01 17:02] LABS: BASOPHILS % (AUTO) 0.4 % (0.0-2.0); EOSINOPHILS # (AUTO) 0.2 K/uL (0-0.4); EOSINOPHILS % (AUTO) 1.5 % (0.0-4.0); HEMATOCRIT 49.5 % (36-52); HEMOGLOBIN 17.1 g/dL (12.0-18.0); LYMPHOCYTES # (AUTO) 2.4 K/uL (2.0-11.5); LYMPHOCYTES % (AUTO) 22.2 % (20.5-51.1); MEAN CORPUSCULAR HEMOGLOBIN 32 pg (27-31); MEAN CORPUSCULAR HGB CONC 35 g/dL (33-37); MEAN CORPUSCULAR VOLUME 92.7 fL (80-94); MONOCYTES # (AUTO) 0.9 K/uL (0.8-1.0); MONOCYTES % (AUTO) 8.1 % (1.7-9.3); NEUTROPHILS # (AUTO) 7.2 K/uL (1.8-7.7); NEUTROPHILS % (AUTO) 67.8 % (42.2-75.2); PLATELET COUNT (AUTO) 268 K/uL (140-450); RED BLOOD CELL COUNT(AUTO) 5.34 MIL/uL (4.20-6.10); RED CELL DISTRIBUTION WIDTH 13.7 % (11.6-13.7); WHITE BLOOD COUNT (AUTO) 10.6 K/uL (4.8-10.8)
[2020-11-01 17:18] LABS: ALBUMIN 4.7 g/dL (3.4-5.0); ANION GAP 16.3 (8-16); CARBON DIOXIDE 28.2 mmol/L (21-32); CREATININE 1.2 mg/dL (0.6-1.3); POTASSIUM 4.5 mmol/L (3.5-5.1); TOTAL BILIRUBIN 0.5 mg/dL (0.0-1.0)
[2020-11-01 18:28] VITALS: BP 140/93
--- NOTE | 2020-11-01 18:28 | NUR ---
Patient discharged with v/s stable. Written and verbal after care instructions given and explained. Patient alert, oriented and verbalized understanding of instructions. Ambulatory with steady gait. All questions addressed prior to discharge. ID band removed. Patient advised to follow up with PMD. Rx of BENTYL NAPROSYN given. Patient educated on indication of medication including possible reaction and side effects. Opportunity to ask questions provided and answered.
== END 2020-11-01 18:28 | disposition home or self-care (01) ==
LOC: MED 13:21
DX: U07.1 COVID-19 (principal); R10.9 Unspecified abdominal pain; R11.2 Nausea with vomiting, unspecified; Z79.899 Other long term (current) drug therapy; Z90.49 Acquired absence of other specified parts of digestive tract
CPT/HCPCS: 36415; 80053; 83690; 85025; 99283; U0003

== ENCOUNTER 2021-03-22 21:58 | Emergency (ER) | payer MEDICAID ==
[~2021-03-22] VITALS: Ht 172.7 cm; Wt 81.6 kg
[2021-03-22 22:09] VITALS: BP 106/87
--- NOTE | 2021-03-22 22:09 | NUR ---
TO BED VIA W/C
--- NOTE | 2021-03-22 22:15 | NUR ---
ARRIVED TO BEDSIDE TO FIND PATIENT ALERT AND ORIENTED ANSD TRACKING WITH EYES. PATIENT CAME TO ED WITH LEFT ANKLE PAIN THAT STARTED ON February PER THE PATIENT. PATIENT PAIN 10/10, SWELLING PRESENT AROUND THE LEFT ANKLE AND PAIN RADIATES TOWARDS THE TOES. PATIENT STATED REGUALRLY DRINKS, STATED HAVING 4 BEERS TODAY AND DENIES ANY DRUG USE. PATIENT STATED HAVING MEDICAL HISTORY OF GALLBLADDER REMOVAL IN 2018 AND GOUT. PATIENT STATED HE TAKES TWO REGULARLY PRESCRIBED GOUT MEDICATIONS BUT DOES NOT KNOW THE NAMES OF MEDS/DOES NOT HAVE THEM IN HIS POSSESSION AT BEDSIDE. CONNECTED TO CONTINIOUS GEOGRAPHIC ANALYST, SINUS TACHY 130, OXYGEN SATURATION 99% ROOM AIR. WILL CONTINUE TO CLOSELY MONITOR AND FREQUENTLY ROUND.
--- NOTE | 2021-03-22 22:17 | NUR ---
X-Ray at bedside.
--- NOTE | 2021-03-22 22:17 | NUR ---
Dr. Woody examining patient.
[2021-03-22] MEDS ORDERED: KETOROLAC 30 MG/ML VIAL IM ONE (22:20)
--- NOTE | 2021-03-22 22:40 | NUR ---
GIVEN MEDICATIONS ORDERED BY DR. ZACARIAS.
[2021-03-22] MEDS ORDERED: IBUP200C97 PO (23:10)
--- NOTE | 2021-03-22 23:23 | NUR ---
PATIENT LEFT ANKLE WRAPPED BY CYNTHIA HOLT, GAVE PATIWENT CRUTCHES. PATIENT PMSC'S INTACT AND POSITIVE BEFORE AND AFTER HIMANSHU BANDAGE APPLIED.
[2021-03-22] MEDS ORDERED: ACETAMINOPHEN 650 MG/20.3 ML UDC PO ONE (23:30)
--- NOTE | 2021-03-22 23:30 | NUR ---
Note puneetminnie in EDM - 03/22/21 at 2359 by ESE Patient discharged with v/s stable. Written and verbal after care instructions given and explained. Patient alert, oriented and verbalized understanding of instructions. Ambulatory with steady gait, wrapped ankle with lore bandage and given crutches. All questions addressed prior to discharge. ID band removed. Patient advised to follow up with PMD. Rx of IBUPROFEN given. Patient educated on indication of medication including possible reaction and side effects. Opportunity to ask questions provided and answered.
--- NOTE | 2021-03-22 23:41 | NUR ---
MEDICATIONS GIVEN ORDERED BY DR. ZACARIAS.
--- NOTE | 2021-03-22 23:42 | NUR ---
Patient discharged with v/s stable. Written and verbal after care instructions given and explained. Patient alert, oriented and verbalized understanding of instructions. Ambulatory with steady gait, wrapped ankle with lore bandage and given crutches. All questions addressed prior to discharge. ID band removed. Patient advised to follow up with PMD. Rx of IBUPROFEN given. Patient educated on indication of medication including possible reaction and side effects. Opportunity to ask questions provided and answered.
[2021-03-22 23:55] VITALS: BP 155/91
== END 2021-03-22 23:42 | disposition home or self-care (01) ==
LOC: MED 21:58
DX: M25.572 Pain in left ankle and joints of left foot (principal); Z79.899 Other long term (current) drug therapy
CPT/HCPCS: 73610; 96372; 99283; J1885

== ENCOUNTER 2021-03-28 16:10 | Emergency (ER) | payer MEDICAID ==
[~2021-03-28] VITALS: Ht 172.7 cm; Wt 83.9 kg
[~2021-03-28 16:10] MED LIST changes: +IBUP200C97 PO
[2021-03-28 16:16] VITALS: BP 209/85
--- NOTE | 2021-03-28 16:20 | NUR ---
PT W/C ASSISTED TO BED 4
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
[2021-03-28] MEDS ORDERED: KETOROLAC 30 MG/ML VIAL IM ONE (16:30)
--- NOTE | 2021-03-28 16:44 | NUR ---
XRAY AT BEDSIDE.
--- NOTE | 2021-03-28 17:23 | NUR ---
LAB AT BEDSIDE.
--- NOTE | 2021-03-28 17:25 | NUR ---
SPOKE WITH LAVELL, PATIENTS , LISTED UNDER DEMOGRAPHICS. GAVE UPDATE REGARDING PATIENT CARE.
[2021-03-28 17:33] LABS: BASOPHILS # (AUTO) 0.1 K/uL (0.00-0.22); BASOPHILS % (AUTO) 0.8 % (0.0-2.0); EOSINOPHILS # (AUTO) 0.3 K/uL (0-0.4); EOSINOPHILS % (AUTO) 5.3 % (0.0-4.0); HEMATOCRIT 35.3 % (36-52); HEMOGLOBIN 12.2 g/dL (12.0-18.0); LYMPHOCYTES # (AUTO) 1.5 K/uL (2.0-11.5); LYMPHOCYTES % (AUTO) 23.3 % (20.5-51.1); MEAN CORPUSCULAR HEMOGLOBIN 31 pg (27-31); MEAN CORPUSCULAR HGB CONC 35 g/dL (33-37); MEAN CORPUSCULAR VOLUME 90.4 fL (80-94); MONOCYTES # (AUTO) 0.5 K/uL (0.8-1.0); MONOCYTES % (AUTO) 8.4 % (1.7-9.3); NEUTROPHILS % (AUTO) 62.2 % (42.2-75.2); PLATELET COUNT (AUTO) 217 K/uL (140-450); RED CELL DISTRIBUTION WIDTH 13.8 % (11.6-13.7); WHITE BLOOD COUNT (AUTO) 6.4 K/uL (4.8-10.8)
[2021-03-28 17:55] LABS: ANION GAP 12.4 (8-16); CARBON DIOXIDE 26.1 mmol/L (21-32); POTASSIUM 3.5 mmol/L (3.5-5.1); TOTAL BILIRUBIN 0.6 mg/dL (0.0-1.0)
[2021-03-28 17:56] LABS: ALBUMIN 3.7 g/dL (3.4-5.0)
[2021-03-28 17:57] VITALS: BP 128/84
--- NOTE | 2021-03-28 18:42 | NUR ---
GAVE PATIENT'S UPDATE REGARDING PATIENT STATUS.
[2021-03-28] MEDS ORDERED: INDO-323 PO (18:43)
[2021-03-28] MEDS ORDERED: PRED20TA5 PO (18:43)
--- NOTE | 2021-03-28 18:50 | NUR ---
UPDATED LAVELL REGARDING PT D/C.
--- NOTE | 2021-03-28 18:55 | NUR ---
Patient discharged with v/s stable. Written and verbal after care instructions given and explained. Patient alert, oriented and verbalized understanding of instructions. Wheel Chair Assisted with steady gait. All questions addressed prior to discharge. ID band removed. Patient advised to follow up with PMD. Rx of INDOCIN AND DELTASONE given. Patient educated on indication of medication including possible reaction and side effects. Opportunity to ask questions provided and answered. W.C. ASSIST TO LOBBY WHERE PATIENT AMBULATED OUTSIDE FOR TO PICK HIM UP.
== END 2021-03-28 18:55 | disposition home or self-care (01) ==
LOC: MED 16:10
DX: M25.472 Effusion, left ankle (principal); M25.475 Effusion, left foot; Z79.899 Other long term (current) drug therapy; Z90.49 Acquired absence of other specified parts of digestive tract; X58.XXXA Exposure to other specified factors, initial encounter; Y93.39 Activity, other involving climbing, rappelling and jumping off; Y92.89 Other specified places as the place of occurrence of the external cause; Y99.8 Other external cause status
CPT/HCPCS: 36415; 73630; 80053; 83880; 84550; 85025; 85651; 96372; 99284; J1885